=== PATIENT | male | born 2000 | race Caucasian/White ===

== ENCOUNTER 2020-01-25 00:43 | Emergency (ER) | payer OTHER ==
[~2020-01-25] VITALS: Ht 185.4 cm; Wt 77.3 kg
[2020-01-25 00:57] VITALS: Ht 185.4 cm; Wt 77.3 kg
[2020-01-25] MEDS ORDERED: NAPROSYN500 MG PO (03:12)
[2020-01-25 03:18] VITALS: BP 130/82
== END 2020-01-25 03:19 | disposition home or self-care (01) ==
LOC: D.ER 00:43
DX: S01.01XA Laceration without foreign body of scalp, initial encounter (principal); S06.0X9A Concussion with loss of consciousness of unspecified duration, initial encounter; V86.55XA Driver of 3- or 4- wheeled all-terrain vehicle (ATV) injured in nontraffic accident, initial encounter; Y93.9 Activity, unspecified; Y92.9 Unspecified place or not applicable; J45.909 Unspecified asthma, uncomplicated